=== PATIENT | female | born 1940 | race Caucasian/White ===

== ENCOUNTER 2023-11-12 19:24 | Inpatient (IN) | payer MEDICARE, OTHER ==
[~2023-11-12] VITALS: Ht 157.5 cm; Wt 53.2 kg
[2023-11-12 02:30] VITALS: O2SAT 98
[2023-11-12] MEDS ORDERED: ONDANSETRON 4 MG/2 ML VIAL ONE (19:44)
[2023-11-12] MEDS ORDERED: levETIRAcetam 500 MG/5 ML VIAL IV ONE (19:44)
[2023-11-12] MEDS: ONDANSETRON 4 MG/2 ML VIAL IV ONE (19:55)
[2023-11-12] MEDS: levETIRAcetam IV 500 MG in IV DEXTROSE 5% 100 ML IV ONE (19:55)
[2023-11-12 20:03] LABS: BASOPHILS # (AUTO) 0.1 K/UL (0.0-0.2); BASOPHILS % (AUTO) 0.8 % (0.0-2.0); EOSINOPHILS # (AUTO) 0.1 K/uL (0.0-0.7); EOSINOPHILS % (AUTO) 0.8 % (0.0-7.0); HEMATOCRIT 40.8 % (31.2-41.9); LYMPHOCYTES % (AUTO) 9.5 % (20.5-51.5); MEAN CORPUSCULAR HGB CONC 32 g/dL (32.3-35.6); MEAN CORPUSCULAR VOLUME 100.5 fL (75.5-95.3); MONOCYTES # (AUTO) 0.6 K/uL (0.1-1.30); MONOCYTES % (AUTO) 5.7 % (0.0-11.0); NEUTROPHILS # (AUTO) 9.1 K/uL (1.8-8.9); NEUTROPHILS % (AUTO) 83.2 % (38.5-71.5); PLATELET COUNT (AUTO) 191 K/uL (179-408); RED BLOOD CELL COUNT(AUTO) 4.06 MIL/uL (3.63-4.92); RED CELL DISTRIBUTION WIDTH 14.6 % (12.3-17.7); WHITE BLOOD COUNT (AUTO) 10.9 K/uL (3.8-11.8)
[2023-11-12 20:05] LABS: DIFFERENTIAL COMMENT 1
[2023-11-12 20:15] LABS: ALANINE AMINOTRANSFERASE 24 U/L (14-59); ALBUMIN 2.8 g/dL (3.4-5.0); ALKALINE PHOSPHATASE 93 U/L (50-136); ASPARTATE AMINOTRANSFERASE 19 U/L (15-37); BILIRUBIN,DIRECT 0.2 mg/dL (0.0-0.2); BILIRUBIN,TOTAL 0.9 mg/dL (0.2-1.0); CALCIUM 9.2 mg/dL (8.5-10.1); CARBON DIOXIDE 31 mmol/L (21-32); CHLORIDE 106 mmol/L (98-107); CREATININE 1.1 mg/dL (0.6-1.3); GLUCOSE 229 mg/dL (74-106); POTASSIUM 4.3 mmol/L (3.5-5.1); SODIUM SERUM 144 mmol/L (136-145); TOTAL PROTEIN, SERUM 6.2 g/dL (6.4-8.2); UREA NITROGEN, BLOOD 19 mg/dL (7-18)
[2023-11-12 20:20] LABS: ETHANOL < 3 MG/DL (0-10)
[2023-11-12] MEDS ORDERED: ZINC50TA69 PO (21:49)
[2023-11-12] MEDS ORDERED: AMINO ACID PO (21:49)
[2023-11-12] MEDS ORDERED: ZINC56.713 TP (21:49)
[2023-11-12] MEDS ORDERED: PANT40TA49 PO (21:49)
[2023-11-12] MEDS ORDERED: HYDR-894 PO (21:49)
[2023-11-12] MEDS ORDERED: LACO200T2 PO (21:49)
[2023-11-12 21:57] LABS: *BILIRUBIN,URIN NEGATIVE (NEGATIVE); *BLOOD, URINE 1+ (NEGATIVE); *CLARITY,URINE CLEAR (CLEAR); *COLOR,URINE YELLOW (YELLOW); *KETONES,URINE NEGATIVE (NEGATIVE); *PROTEIN,URINE 2+ (NEGATIVE); *UROBILINOGEN,URINE 0.2 E.U./dl (NORMAL); LEUKOCYTE ESTERASE ,URINE NEGATIVE (NEGATIVE); NITRITE, URINE NEGATIVE (NEGATIVE); UGLUCOSE 2+ (NEGATIVE)
[2023-11-12 22:09] LABS: BACTERIA,URINE FEW /HPF (NONE SEEN); RBC,URINE 20-50 /HPF (0-3); SQUAMOUS EPITHELIAL CELL,UR FEW /HPF (NONE SEEN)
[2023-11-13] MEDS ORDERED: LORAZEPAM 2 MG/1 ML VIAL IV PRN (00:30)
[2023-11-13] MEDS ORDERED: MORPHINE SULFATE 2 MG/1 ML DISP.SYRIN IVP PRN (00:30)
[2023-11-13] MEDS ORDERED: ACETAMINOPHEN 325 MG TABLET PO PRN (00:30)
[2023-11-13] MEDS ORDERED: DEXTROSE 50% 50 ML DISP.SYRIN IV PRN (00:30)
[2023-11-13] MEDS ORDERED: MAGNESIUM HYDROXIDE 30 ML LIQUID UDC PO PRN (00:30)
[2023-11-13] MEDS ORDERED: ONDANSETRON 4 MG/2 ML VIAL IV PRN (00:30)
[2023-11-13 03:12] VITALS: TEMP 97.4
[2023-11-13] MEDS ORDERED: CEFTRIAXONE /D5W 50ML IVPB **ER PYXIS IV ONE (03:23)
[2023-11-13] MEDS: CEFTRIAXONE 1 G in IV DEXTROSE 5% 50 ML IV SCH (03:34)
[2023-11-13] MEDS: hydrALAZINE HCL 20 MG/1 ML VIAL IV PRN (03:47)
[2023-11-13] MEDS: BLOOD SUGAR DIAGNOSTIC 1 EACH STRIP VI SCH (06:34)
[2023-11-13 07:54] VITALS: BP 130/62; TEMP 97.9; O2SAT 99
[2023-11-13] MEDS: LACOSAMIDE 50 MG TABLET PO SCH (09:00)
[2023-11-13] MEDS: levETIRAcetam IV 500 MG in IV DEXTROSE 5% 100 ML IV SCH (09:46)
[2023-11-13] MEDS: HEPARIN SODIUM,PORCINE 5,000 UNITS/ML VIAL SQ SCH (09:54)
[2023-11-13] MEDS ORDERED: INSU100V7 SQ (11:45)
[2023-11-13 11:55] VITALS: BP 145/67; TEMP 98.5; O2SAT 98
[2023-11-13] MEDS ORDERED: ATOR10TA PO (12:51)
[2023-11-13] MEDS ORDERED: CARV12.52 PO (12:51)
[2023-11-13] MEDS ORDERED: GLIP2.5T3 PO (12:51)
[2023-11-13] MEDS ORDERED: CLOP75TA33 PO (12:51)
[2023-11-13] MEDS ORDERED: ESCI5TAB PO (12:51)
[2023-11-13 13:00] VITALS: O2SAT 98
[2023-11-13 13:43] LABS: THYROID STIMULATING HORMONE 0.661 mIU/mL (0.358-3.740)
[2023-11-13 16:25] VITALS: BP 149/63; TEMP 97.8; O2SAT 99
[2023-11-13] MEDS: LORAZEPAM 2 MG/1 ML VIAL IV ONE (16:34)
[2023-11-13 20:53] VITALS: BP 144/72; TEMP 98.1; O2SAT 97
[2023-11-13] MEDS: INSULIN GLARGINE,HUM 300 UNITS/3 ML CARTRIDGE SQ SCH (21:34)
[2023-11-13] MEDS: INSULIN REGULAR, HUMAN 300 UNIT/3 ML VIAL SQ PRN (21:37)
[2023-11-13] MEDS: ATORVASTATIN 10 MG TABLET PO SCH (22:00)
[2023-11-14] VITALS (7 sets, daily range): BP systolic 109–152; BP diastolic 46–66; TEMP 97.5–98.7; O2SAT 94–98
[2023-11-14] MEDS: CEFTRIAXONE 1 G in IV DEXTROSE 5% 50 ML IV SCH (03:10)
[2023-11-14 06:42] LABS: BASOPHILS % (AUTO) 0.4 % (0.0-2.0); EOSINOPHILS % (AUTO) 0.2 % (0.0-7.0); HEMATOCRIT 33.7 % (31.2-41.9); HEMOGLOBIN 11.2 g/dL (10.9-14.3); LYMPHOCYTES # (AUTO) 1.2 K/uL (0.8-4.8); LYMPHOCYTES % (AUTO) 12.8 % (20.5-51.5); MEAN CORPUSCULAR HEMOGLOBIN 33.2 uug (24.7-32.8); MEAN CORPUSCULAR HGB CONC 33 g/dL (32.3-35.6); MEAN CORPUSCULAR VOLUME 99.6 fL (75.5-95.3); MONOCYTES # (AUTO) 0.8 K/uL (0.1-1.30); MONOCYTES % (AUTO) 8.2 % (0.0-11.0); NEUTROPHILS # (AUTO) 7.4 K/uL (1.8-8.9); NEUTROPHILS % (AUTO) 78.4 % (38.5-71.5); PLATELET COUNT (AUTO) 188 K/uL (179-408); RED BLOOD CELL COUNT(AUTO) 3.38 MIL/uL (3.63-4.92); RED CELL DISTRIBUTION WIDTH 14.4 % (12.3-17.7); WHITE BLOOD COUNT (AUTO) 9.4 K/uL (3.8-11.8)
[2023-11-14 06:54] LABS: DIFFERENTIAL COMMENT 1
[2023-11-14 07:44] LABS: ALANINE AMINOTRANSFERASE 16 U/L (14-59); ALBUMIN 2.5 g/dL (3.4-5.0); ALKALINE PHOSPHATASE 83 U/L (50-136); ASPARTATE AMINOTRANSFERASE 16 U/L (15-37); BILIRUBIN,TOTAL 0.5 mg/dL (0.2-1.0); CARBON DIOXIDE 33 mmol/L (21-32); CHLORIDE 107 mmol/L (98-107); CREATININE 1.2 mg/dL (0.6-1.3); GLUCOSE 100 mg/dL (74-106); PHOSPHOROUS 3.2 mg/dL (2.5-4.9); POTASSIUM 4.6 mmol/L (3.5-5.1); SODIUM SERUM 144 mmol/L (136-145); TOTAL PROTEIN, SERUM 5.7 g/dL (6.4-8.2); UREA NITROGEN, BLOOD 21 mg/dL (7-18)
[2023-11-14] MEDS: glipiZIDE XL 2.5 MG TABCR PO SCH (08:00)
[2023-11-14] MEDS ORDERED: Medication Not On Formulary EA (Escitalopram Oxalate (Lexapro) 1 TAB) PO SCH (09:00)
[2023-11-14] MEDS: CLOPIDOGREL 75 MG TABLET PO SCH (09:00)
[2023-11-14] MEDS: GLUCERNA 1.2 1000ML LIQUID GT SCH (17:52)
[2023-11-14] MEDS ORDERED: MAGNESIUM HYDROXIDE 30 ML LIQUID UDC GT PRN (21:15)
[2023-11-14] MEDS ORDERED: ACETAMINOPHEN 650 MG/20.3 ML LIQUID UDC GT PRN (22:15)
[2023-11-14] MEDS: BLOOD SUGAR DIAGNOSTIC 1 EACH STRIP VI SCH (23:34)
[2023-11-14] MEDS ORDERED: LACOSAMIDE 50 MG TABLET GT SCH (23:45)
[2023-11-14] MEDS: ATORVASTATIN 10 MG TABLET GT SCH (23:51)
[2023-11-15] VITALS (7 sets, daily range): BP systolic 129–188; BP diastolic 55–97; TEMP 97.8–98.3; O2SAT 94–100
[2023-11-15] MEDS: LACOSAMIDE 100 MG/10 ML UDC GT SCH (00:11)
[2023-11-15 08:08] LABS: FOLATE (FOLIC ACID), SERUM >20.0 ng/mL (>3.0)
[2023-11-15] MEDS ORDERED: LACOSAMIDE 50 MG TABLET GT SCH (09:00)
[2023-11-15] MEDS: CLOPIDOGREL 75 MG TABLET GT SCH (10:28)
[2023-11-15] MEDS ORDERED: ATORVASTATIN 10 MG TABLET GT SCH (21:00)
[2023-11-16] VITALS (7 sets, daily range): BP systolic 118–168; BP diastolic 70–81; TEMP 97.5–98.7; O2SAT 92–100
[2023-11-16 10:10] LABS: CALCIUM 9.4 mg/dL (8.5-10.1); CARBON DIOXIDE 31 mmol/L (21-32); CHLORIDE 103 mmol/L (98-107); GLUCOSE 130 mg/dL (74-106); POTASSIUM 3.5 mmol/L (3.5-5.1); SODIUM SERUM 141 mmol/L (136-145); UREA NITROGEN, BLOOD 23 mg/dL (7-18)
[2023-11-16 10:16] LABS: BASOPHILS % (AUTO) 0.3 % (0.0-2.0); HEMATOCRIT 38.2 % (31.2-41.9); HEMOGLOBIN 12.4 g/dL (10.9-14.3); LYMPHOCYTES # (AUTO) 0.6 K/uL (0.8-4.8); LYMPHOCYTES % (AUTO) 5.2 % (20.5-51.5); MEAN CORPUSCULAR HEMOGLOBIN 32.1 uug (24.7-32.8); MEAN CORPUSCULAR HGB CONC 33 g/dL (32.3-35.6); MEAN CORPUSCULAR VOLUME 98.9 fL (75.5-95.3); MONOCYTES # (AUTO) 1.1 K/uL (0.1-1.30); MONOCYTES % (AUTO) 8.8 % (0.0-11.0); NEUTROPHILS # (AUTO) 10.6 K/uL (1.8-8.9); NEUTROPHILS % (AUTO) 85.7 % (38.5-71.5); PLATELET COUNT (AUTO) 226 K/uL (179-408); RED BLOOD CELL COUNT(AUTO) 3.86 MIL/uL (3.63-4.92); RED CELL DISTRIBUTION WIDTH 13.9 % (12.3-17.7); WHITE BLOOD COUNT (AUTO) 12.4 K/uL (3.8-11.8)
[2023-11-16 11:15] LABS: DIFFERENTIAL COMMENT 1
[2023-11-16] MEDS: INSULIN REGULAR, HUMAN 300 UNIT/3 ML VIAL SQ PRN (18:00)
[2023-11-16] MEDS: METOCLOPRAMIDE HCL 10 MG/10 ML UDC NG SCH (18:21)
[2023-11-17 02:03] VITALS: O2SAT 98
[2023-11-17] MEDS: IPRATROPIUM BROMIDE 0.5 MG/2.5 ML NEBU NEB PRN (02:03)
[2023-11-17] MEDS: ALBUTEROL SULFATE 2.5 MG/ 0.5 ML NEBU NEB PRN (02:04)
[2023-11-17 02:18] VITALS: O2SAT 98; O2SAT 99
[2023-11-17] MEDS ORDERED: CEFEPIME HCL 1 G VIAL ONE (02:39)
[2023-11-17] MEDS: CEFEPIME HCL 1 G in IV DEXTROSE 5% 50 ML IV SCH (03:20)
[2023-11-17 12:05] VITALS: BP 131/38; TEMP 98.1; O2SAT 95
[2023-11-17] MEDS: PANTOPRAZOLE SODIUM 40 MG VIAL IV SCH (15:59)
[2023-11-17 16:54] VITALS: BP 134/58; TEMP 98.2; O2SAT 96
[2023-11-17 23:57] VITALS: BP 103/84; TEMP 98.2; O2SAT 90
[2023-11-18] VITALS: BP 121/75; TEMP 97.6; O2SAT 90
[2023-11-18] MEDS: CEFEPIME HCL 1 G in IV DEXTROSE 5% 50 ML IV SCH (02:30)
[2023-11-18 02:46] VITALS: BP 122/64
[2023-11-18 06:00] VITALS: BP 101/56; TEMP 98; O2SAT 98
[2023-11-18] MEDS ORDERED: glipiZIDE XL 2.5 MG TABCR PO SCH (08:00)
[2023-11-18] MEDS ORDERED: HEPARIN SODIUM,PORCINE 5,000 UNITS/ML VIAL SQ SCH (09:00)
[2023-11-18 11:55] VITALS: BP 174/65; TEMP 97.3; O2SAT 98
[2023-11-18] MEDS ORDERED: ALBU2.5V13 NEB (12:03)
[2023-11-18] MEDS ORDERED: IPRA0.2S6 NEB (12:03)
[2023-11-18] MEDS ORDERED: LACO10SO3 GT (12:03)
[2023-11-18] MEDS ORDERED: METO5SOL2 NG (12:03)
[2023-11-18 15:54] VITALS: BP 139/61; TEMP 97.9; O2SAT 100
[2023-11-18 16:08] VITALS: O2SAT 99
== END 2023-11-18 17:35 | disposition hospice, home (50) | DRG 100 ==
LOC: ER 19:26 → TELE3 11-13 00:20 → MEDSURG3 11-14 09:30
PROVIDERS: ADMIT Internal Medicine; ATTEND Nurse Practitioner Acute Care
PROC: 0DH67UZ Insertion of Feeding Device into Stomach, Via Natural or Artificial Opening (ICD-10-PCS; principal; 2023-11-14)
PROC: 3E0G76Z Introduction of Nutritional Substance into Upper GI, Via Natural or Artificial Opening (ICD-10-PCS; 2023-11-14)
DX: G40.919 Epilepsy, unspecified, intractable, without status epilepticus (principal); J69.0 Pneumonitis due to inhalation of food and vomit; G93.41 Metabolic encephalopathy; D68.59 Other primary thrombophilia; E44.0 Moderate protein-calorie malnutrition; I48.0 Paroxysmal atrial fibrillation; K21.9 Gastro-esophageal reflux disease without esophagitis; R26.89 Other abnormalities of gait and mobility; Z74.09 Other reduced mobility; E78.5 Hyperlipidemia, unspecified; I69.398 Other sequelae of cerebral infarction; I69.314 Frontal lobe and executive function deficit following cerebral infarction; I69.391 Dysphagia following cerebral infarction; R13.10 Dysphagia, unspecified; G93.89 Other specified disorders of brain; H54.62 Unqualified visual loss, left eye, normal vision right eye; Z87.440 Personal history of urinary (tract) infections; Z79.899 Other long term (current) drug therapy; F01.50 Vascular dementia, unspecified severity, without behavioral disturbance, psychotic disturbance, mood disturbance, and anxiety; Z66 Do not resuscitate; R62.7 Adult failure to thrive; Z68.21 Body mass index [BMI] 21.0-21.9, adult; R79.89 Other specified abnormal findings of blood chemistry; M62.81 Muscle weakness (generalized); E11.22 Type 2 diabetes mellitus with diabetic chronic kidney disease; N18.9 Chronic kidney disease, unspecified; E88.09 Other disorders of plasma-protein metabolism, not elsewhere classified; I12.9 Hypertensive chronic kidney disease with stage 1 through stage 4 chronic kidney disease, or unspecified chronic kidney disease; J45.909 Unspecified asthma, uncomplicated; Z51.5 Encounter for palliative care
CPT/HCPCS: 36415; 70450; 70551; 71045; 82746; 83921; 84100; 84443; 85025; 85730; 93005; 94664; A4663; A6209; A6213; G0378; G0480; J0360; J0692; J0696; J1644; J1815; J1953; J2060; J2405; J2470; J3590; J8597